=== PATIENT | male | born 1975 | race Caucasian/White ===

== ENCOUNTER 2017-10-17 13:44 | Emergency (ER) | END 2017-10-18 06:13 | disposition home or self-care (01) ==

== ENCOUNTER 2017-10-21 20:28 | Observation (INO) | END 2017-10-22 17:55 | disposition home or self-care (01) ==

== ENCOUNTER 2017-11-14 13:38 | Emergency (ER) | END 2017-11-14 16:24 | disposition home or self-care (01) ==